=== PATIENT | male | born 1975 | race Caucasian/White ===

== ENCOUNTER → 2021-02-09 08:29 | Outpatient (CLI) | payer OTHER, SELFPAY ==
--- NOTE | ~2021-02-09 | MR_ITS ---
EXAMINATION: MR knee LT wo con DATE: 02/09/2021 09:38 INDICATION: Left knee pain TECHNIQUE: Magnetic resonance imaging (MRI) of the left knee was performed without intravenous contra st. Sequences included coronal PD-weighted FSE, coronal PD-weighted FS FSE, sagittal T2-weighted FSE , sagittal PD-weighted FS FSE and axial PD weighted fat saturated FSE. COMPARISON: 07/25/2018 FINDINGS: Medial compartment: Interval partial medial meniscectomy with decrease in size of the body and posterior horn but which m aintains a normal triangular shape with smooth margins and no evident residual/recurrent tear. There is a tiny heterotopic ossicle near the posterior root of the medial meniscus. No significant change i n mild joint space during the medial compartment with minimal diffuse partial thickness cartilage los s with smooth chondral surface. Lateral compartment: Again seen is a partially discoid lateral meniscus without tear. Articular cartilage is normal. Patellofemoral compartment: No significant interval change in a region of deep chondral fissuring at the medial patellar facet wi th underlying mild subarticular edema. There is a new partial-thickness chondral ulceration along the cephalad margin of the medial trochlea without degenerative subchondral changes. Remaining trochlear cartilage is normal. Ligaments and tendons: Anterior and posterior cruciate ligaments are normal. The medial collateral ligament and fibular laila ateral ligament complex are normal. Enhancing is mild distal quadriceps tendinopathy with small enthe sophytes at its patellar insertion. Patellar tendon is normal. The visualized medial and lateral hams tring tendons as well as the iliotibial band are normal. Fluid: Physiologic amount of fluid in the joint space. No loose osteochondral bodies identified. Osseous/other: Small low signal intensity bone island at the anteromedial supracondylar distal femur. No fracture or pathologic marrow replacing process. Scarring at Hoffa's fat pad consistent with prior arthroscopy. IMPRESSION: 1. Interval partial medial meniscectomy with no evident residual/recurrent tear. 2. Unchanged mild joint space during the medial compartment with diffuse mild partial-thickness carti nito loss with smooth chondral surface. 3. Unchanged small region of high-grade chondromalacia at the medial patellar facet with new partial thickness chondral ulceration at the juxtaposed cephalad aspect of the medial trochlea. 4. Partially discoid lateral meniscus without discrete tear. Reviewed, dictated and finalized at location A. IMPRESSION: 1. Interval partial medial meniscectomy with no evident residual/recurrent tear . 2. Unchanged mild joint space during the medial compartment with diffuse mild p artial-thickness cartilage loss with smooth chondral surface. 3. Unchanged small region of high-grade chondromalacia at the medial patellar f acet with new partial thickness chondral ulceration at the juxtaposed cephalad aspect of the medial trochlea. 4. Partially discoid lateral meniscus without discrete tear.
== END ==
PROVIDERS: PCP Internal Medicine; Visit Provider Orthopaedic Surgery
DX: M25.562 Pain in left knee (principal); Z98.890 Other specified postprocedural states; M22.42 Chondromalacia patellae, left knee
CPT/HCPCS: 73721

== ENCOUNTER → 2021-10-24 12:01 | Outpatient (CLI) | payer OTHER, SELFPAY ==
--- NOTE | ~2021-10-24 | XR_ITS ---
EXAMINATION: XR fl inj hip LT for MR/CT DATE: 10/24/2021 12:51 INDICATION: Tear left acetabular labrum. Left hip pain. TECHNIQUE: A time-out was performed to verify the patient's name, date of , and procedure to b e performed. The procedure including the risks, benefits, and alternatives was discussed with the pat ient. Risks discussed included bleeding and infection. The patient understood the risks and agreed to proceed. The skin overlying the left hip joint was prepped and draped in usual sterile fashion. Ane sthetic was administered with 1% lidocaine subcutaneously. A 22 G needle was advanced under fluorosc opic guidance into the joint. Subsequently, injectate consisting of 9 mL of 1:200 Multihance, 1:4 1% lidocaine, and 1:4 Omnipaque 240 was instilled. The needle was removed and the entry site was clean ed and dressed. There were no immediate complications. Fluoroscopy exposure time was 0.0 minutes. Th e total number of images was 3. FINDINGS: Real-time fluoroscopy demonstrates the needle and contrast in the left hip joint. IMPRESSION: 1. Successful left hip joint injection of contrast for subsequent MR arthrography. Reviewed, dictated and finalized at location B. IMPRESSION: 1. Successful left hip joint injection of contrast for subsequent MR arthrograp .
--- NOTE | ~2021-10-24 | MR_ITS ---
EXAMINATION: MR hip LT w con DATE: 10/24/2021 13:36 INDICATION: Left acetabular labral tear TECHNIQUE: Magnetic resonance (MR) arthrogram of the left hip was performed following intra-articular gadolinium contrast injection and without intravenous contrast. Details of the hip joint injection h ave been dictated separately. Sequences included small field of view of the left hip with axial and s agittal T1-weighted FS SE and T2-weighted FS FSE and coronal T1-weighted SE and T2-weighted FS FSE. Additional T1-weighted FGRE images in a radial pattern oriented orthogonal to the acetabular rim were obtained for evaluation of the labrum. COMPARISON: None. FINDINGS: Bones/labrum/cartilage: Alignment is normal. Mild bilateral osteitis pubis. No fracture, avascular necrosis or pathologic mar row replacing process. There is a tear at the superolateral aspect of the left acetabular labrum. The re is mild nonuniform joint space narrowing at the left hip with partial thickness cartilage loss wit h smooth chondral surface and without degenerative subchondral changes most prominent at the posterol ateral and posterior aspects of the joint space. Fluid: Visualized amount of fluid in the right hip joint space. No loose bodies or other filling defects wit hin the contrast opacified left hip joint space. Soft tissues: Normal and symmetric muscle bulk and signal in the pelvis and visualized proximal thighs. The bilater al iliopsoas, gluteal and proximal hamstring tendons are normal. Limited evaluation of visceral organ s of the pelvis is unremarkable. No pathologically enlarged pelvic/inguinal lymphadenopathy. IMPRESSION: 1. Mild left hip osteoarthritis with tear at the superolateral left acetabular labrum. Reviewed, dictated and finalized at location A.
== END ==
DX: S73.192A Other sprain of left hip, initial encounter (principal); M17.12 Unilateral primary osteoarthritis, left knee
CPT/HCPCS: 20610; 73722; 77002; A9577; Q9966

== ENCOUNTER → 2021-12-07 07:43 | Outpatient (CLI) | payer OTHER, SELFPAY ==
--- NOTE | ~2021-12-07 | MR_ITS ---
EXAMINATION: MR knee LT wo con DATE: 12/07/2021 08:10 INDICATION: Other tear of lateral meniscus. Current injury. Left knee pain. TECHNIQUE: Magnetic resonance imaging (MRI) of the left knee was performed without intravenous contra st. Sequences included axial PD-weighted FS FSE, coronal PD-weighted FSE and PD-weighted FS FSE, sagi ttal PD-weighted FSE, and sagittal T2-weighted FS FSE. COMPARISON: Left knee MRI 02/09/2021 FINDINGS: Medial compartment: There are changes of partial meniscectomy. There is a complex tear of body and posterior horn of medi al meniscus with 5 mm paralabral cyst. There is full-thickness cartilage loss of femoral condyle invo lving the central and posterior articular surface. There is partial-thickness cartilage loss of tibia l condyle, deep at the anteromedial articular surface where there is mild subchondral edema-like mia ow signal intensity. Osteophytes are noted. Lateral compartment: Lateral meniscus is normal. There is full-thickness cartilage fissuring of femoral condyle involving the central articular surface with undermining of cartilage in a 3 mm area. There is cartilage surfac e irregularity of tibial condyle. Osteophytes are noted. Patellofemoral compartment: There is full-thickness cartilage loss of patellar medial facet with areas of cartilage undermining a nd mild subchondral edema-like marrow signal intensity. There is deep partial thickness cartilage los s of medial trochlea. Osteophytes are noted. Ligaments and tendons: The anterior and posterior cruciate ligaments are normal. Medial collateral ligament is normal. There are changes of prior sprain of fibular collateral ligament characterized by increased signal intensi ty proximally. There is mild patellar tendinopathy. Fluid: There is a small knee joint effusion. There is a moderate-sized ruptured Gonsalez's cyst IMPRESSION: 1. Severe chondrosis of medial and patellofemoral compartments and moderate chondrosis of lateral com partment with interval worsening. 2. Recurrent tear of medial meniscus. 3. Small knee joint effusion. 4. Ruptured moderate-sized Gonsalez's cyst. Reviewed, dictated and finalized at location B. IMPRESSION: 1. Severe chondrosis of medial and patellofemoral compartments and moderate cho ndrosis of lateral compartment with interval worsening. 2. Recurrent tear of medial meniscus. 3. Small knee joint effusion. 4. Ruptured moderate-sized Gonsalez's cyst.
== END ==
PROVIDERS: Visit Provider Orthopaedic Surgery
DX: S83.282A Other tear of lateral meniscus, current injury, left knee, initial encounter (principal); S83.242A Other tear of medial meniscus, current injury, left knee, initial encounter; M71.22 Synovial cyst of popliteal space [Baker], left knee
CPT/HCPCS: 73721

== ENCOUNTER → 2023-08-13 10:19 | Outpatient (CLI) | payer OTHER, SELFPAY ==
--- NOTE | ~2023-08-13 | MR_ITS ---
MRI of the right knee Clinical history: Medial meniscus tear Technique: Coronal proton density and proton density-weighted images, sagittal proton-density and T2 fat-sat images, and axial proton-density fat-saturated images were acquired. Findings: Anterior and posterior cruciate ligaments are intact. Medial collateral ligament and the la teral collateral ligament complex are intact. Popliteus tendon is intact. Posterior horn and body of the medial meniscus are markedly diminutive, compatible with complex teari ng, or possibly partial meniscectomy change. No lateral meniscal tear seen. There is moderate to high-grade chondral malacia at the posterior aspect of the medial femoral condyl e. Articular cartilage in the lateral compartment and patella is well preserved. There is a focal gra de 3 chondral lesion at the medial femoral trochlea. Extensor mechanism is intact. No significant joint effusion. Small Gonsalez's cyst. Impression: Diminutive posterior horn and body of the medial meniscus. Findings could reflect convex tearing and/ or prior partial mastectomy change. Correlate with surgical history. 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 Small Gonsalez's cyst. Reviewed, dictated and finalized at location . ESS WORKER Impression: Diminutive posterior horn and body of the medial meniscus. Findings could refle ct convex tearing and/or prior partial mastectomy change. Correlate with surgic al history. 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 Small Gonsalez's cyst.
== END ==
PROVIDERS: PCP Physician Assistant; Visit Provider Physician Assistant
DX: S83.241A Other tear of medial meniscus, current injury, right knee, initial encounter (principal); M94.261 Chondromalacia, right knee; M71.21 Synovial cyst of popliteal space [Baker], right knee; X58.XXXA Exposure to other specified factors, initial encounter
CPT/HCPCS: 73721

== ENCOUNTER 2024-08-01 13:14 | Outpatient (CLI) | payer OTHER, SELFPAY ==
--- OUTSIDE RECORDS SUMMARY | 2024-08-01 13:17 | XMS_ITS | Clinical Summary ---
Author Organization [facility] Address [facility] [place] [address] Care Team Providers Care Vertical Contour Band Saw Operator Name Role Phone David Monae MD Primary Care Provider [phone] Allergies No known active allergies Social History Tobacco Use Types Packs/Day Years Used Date Smoking Tobacco: Never Smokeless Tobacco: Never Alcohol Use Standard Drinks/Week Comments Yes 0 (1 standard drink = 0.6 oz pur e alcohol) Sex and Gender Information Value Date Recorded Sex Assigned at Not on file Legal Sex Male 7:32 AM CDT Gender Identity Not on file Sexual Orientation Not on file Last Filed Vital Signs Vital Sign Reading Time Taken Comments Blood Pressure 157/89 08/18/2020 7:14 AM COOKIE PADDER Pulse 65 08/18/2020 7:14 AM COOKIE PADDER Temperature 36.3 C (97.3 F) 08/18/2020 7:14 AM COOKIE PADDER Respiratory Rate 18 08/18/2020 7:14 AM COOKIE PADDER Oxygen Saturation 97% 08/18/2020 7:14 AM COOKIE PADDER Inhaled Oxygen Concentration - - Weight 131.5 kg (290 lb) 08/18/2020 7:14 AM COOKIE PADDER Height 188 cm (6' 2 ) 08/18/2020 7:14 AM COOKIE PADDER Body Mass Index 37.23 08/18/2020 7:14 AM COOKIE PADDER Plan of Treatment Health Maintenance Due Date Last Done Comments Colorectal Cancer Screening Colonoscopy (10 Years) 1976 Annual Physical 1979 Hepatitis C 1994 DTaP, Tdap and Td Vaccines ( 1 - Tdap) 1995 Hepatitis B Vaccines (1 of 3 - 19+ 3-dose series) 1995 COVID-19 Vaccine (2023-2 5 season) 2024 Influenza Adult (#1) 2024 04/05/2017 Meningococcal B Vaccine Aged Out No l onger eligible based on patient's age to complete this topic Meningococcal Vaccine Aged Out No maya rony eligible based on patient's age to complete this topic Pneumococcal Vaccine: Pediat rics (0 to 5 Years) and At-Risk Patients (6 to 64 Years) Aged Out No longer eligi ble based on patient's age to complete this topic RSV Immunizations Under 20 Months Aged Out No longer eligible based on patient's age to complete this topic Insurance R Care Teams Vertical Contour Band Saw Operator Relationship Specialty Start Date End Date David Monae MD [address] [facility] [address] [place] [address] PCP - General INTERNAL MEDICINE 08/18/20
--- OUTSIDE RECORDS SUMMARY | 2024-08-01 13:17 | XMS_ITS | Encounter Summary ---
Author Organization [facility] Address [address] [place] [address] Care Team Providers Care Mammalogist Name Role Phone David Monae MD Primary Care Provider [phone] Agustin Lee CARRIER DRIVER Unavailable [phone] Encounter Details Date Type Department Care Team (Late st Contact Info) Description 08/17/2018 Documentation [facility] [address] [place] [address] Fiona Morales RN Social History Tobacco Use Types Packs/Day Years Used Date Smoking Tobacco: Never Smokeless Tobacco: Never Alcohol Use Standard Drinks/Week Comments No 0 (1 standard drink = 0.6 oz pur e alcohol) Sex and Gender Information Value Date Recorded Sex Assigned at Not on file Legal Sex Male 10:04 AM CHROME PLATER Gender Identity Not on file Sexual Orientation Not on file documented as of this encounter Plan of Treatment Not on file documented as of this encounter Visit Diagnoses Not on filedocumented in this encounter Care Teams Mammalogist Relationship Specialty Start Date End Date David Monae MD [address] [place] [id number] PCP - General Internal Medicine 07/18/18 Agustin Lee, ZEE [address] [place] [address] [facility] [address] [place] [address] Nurse Practitioner Nurse Practitioner 02/15/22 documented as of this encounter
--- OUTSIDE RECORDS SUMMARY | 2024-08-01 13:17 | XMS_ITS | Referral Summary ---
Author Organization [address] Address [address] [place] [id number] Care Team Providers Care Load Dispatcher Local Name Role Phone David Monae MD Primary Care Provider [phone] Agustin Lee NP Unavailable [phone] Encounters Date Type Department Care Team Description 07/03/2024 8:15 AM LAW FIRM ADMINISTRATOR Office Visit [facility] Orthopedic and Sports Medicine [facility] [place] [address] Laura Bustamante PA Primary osteoarthritis of knees, bilateral (Primary Dx); Bilateral hip pain; Tear of left acetabular labrum, subsequent encounter 06/26/2024 Telephone [facility] Orthopedics and Sports Medicine [address] [facility] [address], [place] [address] Laura Bustamante PA Durolane inj auth from Last 3 Months Allergies No known active allergies Medications Xarelto 20 mg tablet Take 1 tablet (20 mg total) by mouth daily 4 Active semaglutide (WEGOVY) 0.25 mg/0.5 mL auto-injector Inject 0.5 mL (0.25 mg total) under the skin every 7 days 07/03/19 25 Discontinu ed(Alterna te therapy) Hospital, Clinic, or Other Facility Administered Medication Ordered Dose Route Frequency Start Date End Date Status hyaluronate sodium, stabilized (DUROLANE) 60 mg/3 mL 60 mgIndications:Primar y osteoarthritis of knees, bilateral 60 mg intra-artic One-Time Injection 07/03/2024 5 Ended hyaluronate sodium, stabilized (DUROLANE) 60 mg/3 mL 60 mgIndications:Primar y osteoarthritis of knees, bilateral 60 mg intra-artic One-Time Injection 07/03/2024 5 Ended Active Problems Problem Noted Date Diagnosed Date Tear of left acetabular labrum 03/16/2022 Tear of meniscus of knee joint 01/26/2022 Overview (01/26/2022): Added automatically from request for surgery [id number] Colon, diverticulosis 07/04/2021 Hepatic steatosis 07/04/2021 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 Abnormal LFTs (liver function tests) 04/20/2020 Prothrombin gene mutation 08/22/2018 Pulmonary embolism 08/17/2018 Left leg DVT 08/17/2018 Obesity 08/17/2018 Complex tear of medial menis cus of left knee as current injury 08/14/2018 Overview (08/14/2018): Added automatically from request for surgery [id number] Agatston coronary artery calcium score less than 100 06/06/2018 Family history of coronary artery disease 2017 Hyperlipidemia 04/12/2018 Social History Tobacco Use Types Packs/Day Years Used Date Smoking Tobacco: Never Smokeless Tobacco: Never Alcohol Use Standard Drinks/Week Comments No 0 (1 standard drink = 0.6 oz pur e alcohol) AUDIT-C Answer Date Recorded Q1: How often do you have a drink containing alc ohol? 2-4 times a month 02/16/2022 Q2: How many drinks containi ng alcohol do you have on a typical day when you are drinking? 3 or 4 02/16/2022 Frequency of Binge Drinking Not on file 01/24 Sex and Gender Information Value Date Recorded Sex Assigned at Not on file Legal Sex Male 10:04 AM LAW FIRM ADMINISTRATOR Gender Identity Not on file Sexual Orientation Not on file Last Filed Vital Signs Vital Sign Reading Time Taken Comments Blood Pressure 133/87 07/03/2024 8:20 AM LAW FIRM ADMINISTRATOR Pulse 89 07/03/2024 8:20 AM LAW FIRM ADMINISTRATOR Temperature 35.6 C (96 F) 02/16/2022 9:58 AM CDT Respiratory Rate 18 02/16/2022 9:58 AM CDT Oxygen Saturation 95% 02/16/2022 9:58 AM CDT Inhaled Oxygen Concentration - - Weight 132.5 kg (292 lb) 07/03/2024 8:20 AM LAW FIRM ADMINISTRATOR Height 189.2 cm (6' 2.5 ) 07/03/2024 8:20 AM LAW FIRM ADMINISTRATOR Body Mass Index 36.99 07/03/2024 8:20 AM LAW FIRM ADMINISTRATOR Plan of Treatment Not on file Procedures Procedure Name Priority Date/Time Associated Diagnosis Comments DC ARTHROCENTESIS ASPIR&/INJ MAJOR JT/BURSA W/O US Routine 07/03/2024 8:15 AM LAW FIRM ADMINISTRATOR Primary osteoarthritis of knees, bilateral from Last 3 Months Results * DC ARTHROCENTESIS ASPIR&/INJ MAJOR JT/BURSA W/O US (07/03/2024 8:15 AM LAW FIRM ADMINISTRATOR) Narrative Laura Bustamante PA - 07/03/2024 8:15 AM LAW FIRM ADMINISTRATOR Laura Bustamante PA 07/03/2024 9:07 AM Large Joint (Hip, Knee, Shoulder) Injection: bilateral knee Performed by: Laura Bustamante PA Authorized by: Laura Bustamante PA Large Joint Injection/Aspiration: Consent Given by: Patient Site marked: the procedure site was marked Verbal consent obtained: Yes Supporting Documentation: Indications: Pain Procedure Details: Location: Knee Site: Bilateral knee Prep: patient was prepped and draped in usual sterile fashion Needle Size: 22 G Approach: Anterolateral Ultrasound guided: No Fluroscopic guidance: No Medications Right Large Joint Injection: 60 mg hyaluronate sodium, stabilized 60 mg/3 mL Medications Left Large Joint Injection: 60 mg hyaluronate sodium, stabilized 60 mg/3 mL Patient tolerance: Patient tolerated the procedure well with no immediate complications Laura MCCANN IN CLINIC/BEDSIDE ORDER GIBRAN Final Result from Last 3 Months Insurance [facility] CHOICE PLUS [facility] H[facility]/PPO Address: [address] [address] [place] [address] [facility] CHOICE [place] [facility] HMO [facility] CHOICE PLUS [facility]/PPO Address: [place] [address] Advance Directives For more information, please contact: [phone] * Full Code (Latest Code Status on File) Date Activated Date Inactivated Comments 08/17/2018 1:04 AM 08/17/2018 6:43 PM Care Teams Load Dispatcher Local Relationship Specialty Start Date End Date David Monae MD [address] [place] [phone] PCP - General Internal Medicine 07/18/18 Agustin Lee NP [address] [place] [address] DR ACKERMAN [address] [place] [id number] Nurse Practitioner Nurse Practitioner 02/15/22
--- OUTSIDE RECORDS SUMMARY | 2024-08-01 13:17 | XMS_ITS | Clinical Summary ---
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 Abnormal LFTs (liver function tests) 04/20/2020 Prothrombin gene mutation 08/22/2018 Pulmonary embolism 08/17/2018 Left leg DVT 08/17/2018 Obesity 08/17/2018 Complex tear of medial menis cus of left knee as current injury 08/14/2018 Overview (08/14/2018): Added automatically from request for surgery [id number] [place] coronary artery calcium score less than 100 06/06/2018 Family history of coronary artery disease 2017 Hyperlipidemia 04/12/2018 Encounters Date Type Department Care Team Description 07/03/2024 8:15 AM TOBACCO ROLLER Office Visit [facility] [address] [place] [phone] Laura Bustamante PA Primary osteoarthritis of knees, bilateral (Primary Dx); Bilateral hip pain; Tear of left acetabular labrum, subsequent encounter 06/26/2024 Telephone [facility] [address] [facility] [address] [place] [phone] Laura Bustamante PA Durolane inj auth from Last 3 Months Surgical History Surgery Date Site/Laterality Comments KNEE SURGERY right knee scope 15 years [place] FLUORO GUIDED INJECTION H IP LEFT 11/07/2021 Left KNEE ARTHROSCOPY Left [place] FLUORO GUIDED INJECTION H IP LEFT 06/05/2022 Left Medical History Medical History Date Comments DVT (deep venous thrombosis) (CMS/HCC) (HCC) 2018 Left leg Family History Medical History Relation Name Comments Blood Clot Mother Diabetes Neg Hx Hypertension Neg Hx Relation Name Status Comments Mother Social History Tobacco Use Types Packs/Day Years [...] on file Legal Sex Male 10:04 AM TOBACCO ROLLER Gender Identity Not on file Sexual Orientation Not on file Obstetrics History Last Filed Vital Signs Vital Sign Reading Time Taken Comments Blood Pressure 133/87 07/03/2024 8:20 AM TOBACCO ROLLER Pulse 89 07/03/2024 8:20 AM TOBACCO ROLLER Temperature 35.6 C (96 F) 02/16/2022 9:58 AM CDT Respiratory Rate 18 02/16/2022 9:58 AM CDT Oxygen Saturation 95% 02/16/2022 9:58 AM CDT Inhaled Oxygen Concentration - - Weight 132.5 kg (292 lb) 07/03/2024 8:20 AM TOBACCO ROLLER Height 189.2 cm (6' 2.5 ) 07/03/2024 8:20 AM TOBACCO ROLLER Body Mass Index 36.99 07/03/2024 8:20 AM TOBACCO ROLLER Plan of Treatment Health Maintenance Due Date Last Done Comments Colon Cancer Screening-Colonoscopy 1976 Depression Screening 1976 Hepatitis C Screening 1976 Pneumococcal vaccine <65 (1 of 2 - PCV) 1982 Hepatitis B Screening 1994 Regular Well Visit/Exam 18-64 1994 Covid-19 Vaccine (3 - 2023-2 5 season) 2024 06/27/2021, 09/27/2020 Influenza Vaccine (#1) 2024 , 04/16/2020, 04/11/2019, Additional history exists DTaP/Tdap/Td Vaccine (2 - Td or Tdap) 04/16/2030 04/16/2020 Procedures Procedure Name Priority Date/Time Associated Diagnosis Comments [place] ARTHROCENTESIS ASPIR&/INJ MAJOR JT/BURSA W/O US Routine 07/03/2024 8:15 AM TOBACCO ROLLER Primary osteoarthritis of knees, bilateral from Last 3 Months Results * WI ARTHROCENTESIS ASPIR&/INJ MAJOR JT/BURSA W/O US (07/03/2024 8:15 AM TOBACCO ROLLER) Narrative Laura Bustamante PA - 07/03/2024 8:15 AM TOBACCO ROLLER Laura Bustamante PA 07/03/2024 9:07 AM Large [...] Final Result from Last 3 Months Insurance [facility] CHOICE PLUS [place] [employer] [place] [facility] CHOICE PLUS Advance Directives For more information, please contact: [phone] * Full Code (Latest Code Status on File) Date Activated Date Inactivated Comments 08/17/2018 1:04 AM 08/17/2018 6:43 PM Care Teams Correctional Officer Relationship Specialty Start Date End Date David Monae MD [address] [place] [phone] PCP - General Internal Medicine 07/18/18 Agustin Lee NP [address] [place] [address] [address] [place] [address] Nurse Practitioner Nurse Practitioner 02/15/22
[2024-08-01 13:33] LABS: Basophils Absolute Auto 0.1 K/mm3 (0.0-0.1); Basophils Percent Auto 0.9 % (0.2-1.2); Eosinophils Absolute Auto 0.1 K/mm3 (0-0.3); Hemoglobin 16.4 g/dL (14.0-18.0); Immature Granulocyte Absolute 0.01 K/mm3 (0.00-0.031); Immature Granulocyte Percent A 0.1 % (0-0.5); Lymphocytes Absolute Auto 2.89 K/mm3 (0.9-3.2); Lymphocytes Percent Auto 36.4 % (18.3-44.2); Mean Corpuscular HGB Conc 32.8 g/dl (32-36); Mean Corpuscular Hemoglobin 28.8 pg (26-34); Mean Corpuscular Volume 87.7 fl (80-100); Mean Platelet Volume 8.4 fl (7.4-10.4); Monocytes Percent Auto 12.4 % (2.6-8.5); Neutrophils Absolute Auto 3.9 K/mm3 (1.3-6.7); Neutrophils Percent Auto 49.2 % (45.5-73.1); Platelet Count Result 311 k/mm3 (150-375); White Blood Count 7.9 K/mm3 (4.5-10.0)
[2024-08-01 13:37] LABS: Blood Urea Nitrogen 22 mg/dL (8-26); Carbon Dioxide 27 mmol/L (22-30); Chloride 105 mmol/L (98-109); Estimated Glomerular Filt Rate > 60; Glucose 82 mg/dL (70-105); Ionized Calcium (POC) 1.24 mmol/L (1.11-1.31); Potassium 4.5 mmol/L (3.5-4.9); Sodium 143 mmol/L (138-146)
[2024-08-01 16:24] LABS: Alanine Aminotransferase 36 U/L (6-50); Albumin Level 4.5 g/dL (3.5-5.1); Alkaline Phosphatase 54 U/L (38-126); Anion Gap 8 mmol/L (4-12); Aspartate Amino Transferase 48 U/L (17-59); Blood Urea Nitrogen 21 mg/dL (9-20); Calcium 9.7 mg/dL (8.4-10.2); Carbon Dioxide 28 mmol/L (22-30); Chloride 105 mmol/L (98-107); Estimated Glomerular Filt Rate > 60; Glucose 77 mg/dL (65-110); Potassium 4.7 mmol/L (3.4-5.0); Sodium 141 mmol/L (137-145)
== END 2024-08-01 13:15 | disposition home or self-care (01) ==
PROVIDERS: PCP Physician Assistant; Visit Provider Internal Medicine Hematology & Oncology
DX: Z86.718 Personal history of other venous thrombosis and embolism (principal)
CPT/HCPCS: 36415; 80047; 80053; 85025